=== PATIENT | female | born 1960 | race Caucasian/White ===

== ENCOUNTER 2016-11-11 11:21 | Day surgery (SDC) | payer MEDICARE, MEDICAID ==
[~2016-11-11] VITALS: Ht 167.6 cm; Wt 72.5 kg
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
[~2016-11-11 11:21] MED LIST: ASPI-973 PO; BENZ1KIT27 TP; DOCU240C41 PO; HYDR-4003 PO; INSU100I13 SQ; INSU3INS3 SUBQ; LACT1CAP73 PO; Lactated Ringer's 1,000 ML IV ONE; Lactated Ringer's 1,000 ML IV SCH; METF500T4 PO; MINO100C3 PO; MetoCLOpramide 5 mg/mL 2 mL Inj IVPUSH PRN; NICO1PAT16 TRANSDERM; Ondansetron 2 mg/mL 2 mL Inj IVPUSH PRN; POLY17PO6 PO; PSYL798P2 PO; [UNRECOGNIZED DRUG - CODE] TP
[2016-11-11] MEDS ORDERED: Propofol 10,000 mCg/mL 20 mL Inj ONE (11:22)
[2016-11-11 11:52] VITALS: BP 112/74; PULSE 86; RESP 16; O2SAT 98
--- NOTE | 2016-11-11 12:36 | PCM.ANEP2 ---
Post Anesthesia Evaluation ASA/CMS Post Anesthesia Date of Service: Nov 11, 2016 VS in Patient's Normal Range?: Yes Resp Stable; Airway Patent?: Yes CV Function & Hydration Stable: Yes Mental Status Recovered?: Yes Pain control Satisfactory?: Yes N/V Control Satisfactory?: Yes Derek Awan DO Nov 11, 2016 12:36
--- NOTE | 2016-11-11 12:36 | PCM.ANEP1 ---
Post Anesthesia Phase 1 PACU Phase 1 Assessment Date of Service: Nov 11, 2016 Vital Signs Vital Signs Date Time Temp Pulse Resp B/P Pulse Ox O2 Delivery O2 Flow Rate FiO2 11/11/16 11:52 36.8 86 16 112/74 98 Room Air Anesthetic Administered: MAC Level of Alertness: Drowsy, not talking ROJO's with Equal Strength: Yes Pain: No Nausea or Vomiting: No Oxygen Delivery: Room Air Lungs: Clear to Auscultation, Normal Air Movement (Reduced BS Bilaterlly) Dermatome Level: Full Sensation Derek Awan DO Nov 11, 2016 12:36
[2016-11-11 12:43] VITALS: BP 117/87; PULSE 78; O2SAT 97
[2016-11-11 12:54] VITALS: BP 106/65; PULSE 75; O2SAT 97
[2016-11-11 13:04] VITALS: BP 102/72; PULSE 87; O2SAT 99
--- NOTE | 2016-11-11 23:20 | ENDO ---
[address] [address] ENDOSCOPY PROCEDURE PATIENT: VICTOR HUGO GUERIN : 1960 MR#: [id number] ADMIT: 11/11/2016 JOB ID: [id number] DATE: 11/11/2016 OPERATION: Colonoscopy with biopsy. PREOPERATIVE DIAGNOSIS(ES): History of colon polyps. POSTOPERATIVE DIAGNOSIS(ES): 1. A 2 mm sigmoid polyp, removed by cold biopsy forceps. 2. Mild sigmoid diverticulosis. ANESTHESIA: Monitored anesthesia care. COMPLICATIONS: None. BLOOD LOSS: Minimal. DESCRIPTION OF PROCEDURE: After risks and benefits were explained to the patient, informed consent was obtained. After anesthesia administered, a colonoscope was inserted from the rectum to the cecum. Mucosa carefully examined. Prep of the patient was excellent. After procedure was done, the scope withdrawn and the procedure terminated. FINDINGS: Upon inspection of the anus, no masses, hemorrhoids, ulcers, fissures that were seen. Throughout the entire examination, there was a 2 mm sigmoid polyp, removed by cold biopsy forceps but there was also mild sigmoid diverticulosis that was seen. No other polyps or masses were seen. Retroflexion was normal. IMPRESSIONS: 1. A 2 mm sigmoid colon polyp removed by cold biopsy forceps. 2. Mild sigmoid diverticulosis. RECOMMENDATIONS: High-fiber diet. Await pathology results. Repeat colonoscopy in five years given history of colon polyps.
--- NOTE | 2016-11-14 10:09 | PATH ---
SURGICAL PATHOLOGY Attending Physician:Marcus Molina MD CASE STATUS: Signed Out PATIENT NAME: VICTOR HUGO GUERIN PID: [id number] : 1960 DATE COLLECTED:11/11/2016 20:15 SPECIMEN: Colon, Biopsy CLINICAL HISTORY: 1). SIGMOID COLON POLYP FINAL DIAGNOSIS: 1.SIGMOID COLON POLYP: CHANGES CONSISTENT WITH HYPERPLASTIC POLYP. ICD10 CODE K63.5 GROSS DESCRIPTION: The specimen is received in one formalin filled container labeled with the patient's name, sublabeled "sigmoid colon polyp" and consists of a 0.2 x 0.2 x 0.2 CM portion of tissue which is entirely submitted in one cassette. 11/11/2016 DAC MICRO DESCRIPTION: See diagnosis. ICD-9 CODES: CPT CODES: 1: 31312 Electronically Signed Out Chris Yin MD [facility] Pathology [facility] [address], [place] [address] Technical component performed at [facility], [facility] [address], [place], [address]
== END 2016-11-11 23:59 | disposition home or self-care (01) ==
LOC: END 11:21
PROVIDERS: ATTEND Internal Medicine Gastroenterology
DX: K63.5 Polyp of colon (principal); K57.30 Diverticulosis of large intestine without perforation or abscess without bleeding; E11.9 Type 2 diabetes mellitus without complications; Z86.010 Personal history of colon polyps; Z79.82 Long term (current) use of aspirin; Z79.4 Long term (current) use of insulin; Z79.899 Other long term (current) drug therapy